=== PATIENT | female | born 1990 | race Caucasian/White ===

== ENCOUNTER → 2020-06-16 13:30 | Outpatient (BNVA) | payer OTHER, SELFPAY | PROVIDERS: Family Provider Nurse Practitioner Family; PCP Nurse Practitioner Family; Visit Provider Psychiatry & Neurology Psychiatry | DX: F43.12 Post-traumatic stress disorder, chronic (principal); F33.1 Major depressive disorder, recurrent, moderate; F41.1 Generalized anxiety disorder | CPT/HCPCS: 99204 ==

== ENCOUNTER → 2020-09-22 10:37 | Outpatient (BNVA) | payer OTHER, SELFPAY | PROVIDERS: Family Provider Nurse Practitioner Family; PCP Nurse Practitioner Family; Visit Provider Nurse Practitioner Women's Health | DX: N92.6 Irregular menstruation, unspecified (principal) | CPT/HCPCS: 81025 ==

== ENCOUNTER → 2020-10-27 11:21 | Outpatient (BNVA) | payer BC, SELFPAY | PROVIDERS: Family Provider Nurse Practitioner Family; PCP Nurse Practitioner Family; Visit Provider Obstetrics & Gynecology | DX: Z34.80 Encounter for supervision of other normal pregnancy, unspecified trimester (principal) | CPT/HCPCS: 80307; 84315; 85027; 86592; 86762; 86787; 86803; 86850; 86900; 87086; 87340; 87806 ==

== ENCOUNTER → 2020-11-11 15:09 | Outpatient (BNVA) | payer BC, SELFPAY | PROVIDERS: Family Provider Nurse Practitioner Family; PCP Nurse Practitioner Family; Visit Provider Obstetrics & Gynecology | DX: Z34.90 Encounter for supervision of normal pregnancy, unspecified, unspecified trimester (principal) | CPT/HCPCS: 84315; 87491; 87591; 88175 ==

== ENCOUNTER → 2020-12-08 15:48 | Outpatient (BNVA) | payer BC, SELFPAY | PROVIDERS: Family Provider Nurse Practitioner Family; PCP Nurse Practitioner Family; Visit Provider Nurse Practitioner Women's Health | DX: Z34.90 Encounter for supervision of normal pregnancy, unspecified, unspecified trimester (principal) | CPT/HCPCS: 82105; 84315 ==

== ENCOUNTER → 2021-03-04 08:39 | Outpatient (BNVA) | payer BC, SELFPAY | PROVIDERS: Family Provider Nurse Practitioner Family; PCP Nurse Practitioner Family; Visit Provider Nurse Practitioner Women's Health | DX: Z34.80 Encounter for supervision of other normal pregnancy, unspecified trimester (principal) | CPT/HCPCS: 82950; 84315; 85025; 86850 ==

== ENCOUNTER 2021-03-30 09:52 | Outpatient (CLI) | payer BC, SELFPAY ==
[2021-03-30 10:00] VITALS: BP 121/77; PULSE 103; RESP 18; TEMP 36.3; O2SAT 97; BMI 31.8
[2021-03-30 10:57] VITALS: BP 130/84; PULSE 98; RESP 18; TEMP 36.3; O2SAT 96
[2021-03-30 11:57] VITALS: BP 112/70; PULSE 98; RESP 18; TEMP 36.3; O2SAT 98
== END 2021-03-30 11:57 | disposition home or self-care (01) ==
PROVIDERS: PCP Nurse Practitioner Family; Visit Provider Nurse Practitioner Family
DX: U07.1 COVID-19 (principal)
CPT/HCPCS: 96365

== ENCOUNTER → 2021-04-26 10:30 | Outpatient (BNVA) | payer BC, SELFPAY | PROVIDERS: PCP Nurse Practitioner Family; Visit Provider Obstetrics & Gynecology | DX: Z34.80 Encounter for supervision of other normal pregnancy, unspecified trimester (principal) | CPT/HCPCS: 84315; 87081 ==

== ENCOUNTER 2021-05-25 09:20 | Inpatient (IN) | payer BC, SELFPAY ==
[2021-05-25] VITALS (83 sets, daily range): BP systolic 80–138; BP diastolic 41–95; PULSE 60–114; RESP 16–18; TEMP 36.1–37.5; O2SAT 97–99; BMI 34.1
[2021-05-25] MEDS: fentaNYL 50 mcg/mL INJ 2mL IVP (09:41)
[2021-05-25] MEDS: lactated ringers 1,000 ML 999 ML IV ×2 (09:41→10:17)
[2021-05-25 10:13] LABS: Basophils % 0.2 %; Eosinophils # 0.2 10^3/uL (0.0-0.8); Eosinophils % 1.3 %; Hematocrit 35.7 % (37.0-47.0); Hemoglobin 11.8 g/dL (11.5-15.3); Lymphocytes # 1.6 10^3/uL (0.8-4.8); Lymphocytes % 10.9 %; Mean Corpuscular HGB Conc 33.1 g/dL (30.0-36.0); Mean Corpuscular Hemoglobin 30.3 pg (28.0-34.0); Mean Corpuscular Volume 91.8 fl (81-99); Mean Platelet Volume 11.4 fL (7.4-10.4); Monocytes # 1.2 10^3/uL (0.2-0.9); Monocytes % 7.9 %; Neutrophils # 11.84 10^3/uL (1.8-7.7); Neutrophils % 78.9 %; Nucleated Red Blood Cells % 0 %; Platelet Count 227 10^3/cmm (130-400); Red Blood Count 3.89 10^6/uL (4.1-5.3); Red Cell Distribution Width 13.9 % (12.1-15.1)
--- NOTE | 2021-05-25 10:22 | P.ANESASSM_ITS ---
Pre-Anesthetic Assessment Height/Weight: Height 1.75 m Weight 104.78 kg Pulse Resp BP 71 18 127/77 05/25/21 10:14 05/25/21 09:41 05/25/21 10:14 Preop Diagnosis: labor pain labor epidural Familial anesthetic complications: none Was Beta Elmer taken within 24 hours: N/A Social No alcohol and No tobacco Exam alert, oriented x 3, clear to auscultation bilaterally and regular rate & rhythm Airway Submandibular: within normal limits Cervical ROM: within normal limits Mallampati: Class III Dentition: full History/ROS No significant history except as noted Pulmonary None reported CV/HEM None reported None reported Hepatic None reported GI None reported Metabolic None reported Musc/skel None reported Neuropsych Anxiety Anesthetic Plan ASA status: 2 Anesthesia: Anesthesia Evaluation, General and Regional (specify below) Other: I discussed with patient the risk and benefits of labor epidural including PDPH, hypotension, back pain/discomfort/bruising, catastrophic nerve injury including paralysis, abscess, hematoma, failed block, one sided block, and LAST. Patient consents to labor epidural and in case of emergency consents to general anesthesia. Risk of > 500 ml blood loss (7ml/kg in children): No Medications/Allergies Home Medications Medication Instructions Recorded Confirmed Last Taken Type prenat.vits,oneyda,qtg-saiq-okvzh 1 tab PO DAILY 10/20/20 05/24/21 Unknown History fluoxetine 20 mg capsule (Prozac) 20 mg PO DAILY #14 cap 05/03/21 05/24/21 Unknown Rx Allergies Allergy/AdvReac Type Severity Reaction Status Date / Time promethazine Allergy Itching/Medhat Verified 05/24/21 07:58 sea tramadol AdvReac Dysuria/swe Verified 05/24/21 07:58 ating Current Medications Generic Name Dose Route Start Last Admin Trade Name Freq PRN Reason Stop Dose Admin Fentanyl 25 - 100 mcg 05/25/21 09:20 05/25/21 09:41 Fentanyl 50 Mcg/Ml Inj 2ml IVP 100 mcg Q1H PRN Administration SEVERE PAIN Lactated Ringer's 1,000 mls @ 999 mls/hr 05/25/21 09:20 05/25/21 10:17 Lactated Ringers IV 999 mls/hr .Q1H1M PRN Administration Per L&D Rescitation Protocol Lactated Ringer's 1,000 mls @ 999 mls/hr 05/25/21 09:27 05/25/21 10:10 Lactated Ringers IV Infused .Q1H1M PRN Infusion See label comments [facility] Anesthesia Medical History Anxiety and depression Symptoms on and off and was diagnosed in 2020 and was on Prozac prior to the start of the . She follows with Dr. Holliday at [facility] [place] and is just started therapy. No pertinent past medical history Denies diabetes, asthma, hypertension, seizures, DVT/PE PCP: Plans to start seeing Mayda Whitehead Surgical History No pertinent past surgical history Family History Denies family history of Colon cancer Ovarian cancer Diabetes Heart disease Hypercholesteremia Breast cancer Hypertension Uterine cancer Thyroid disease Stroke Data Anesthesia : 05/25/21 09:12 Short CBC 05/25/21 Range/Units 09:12 WBC 15.0 H (4.0-10.0) 10^3/uL Hgb 11.8 (11.5-15.3) g/dL Hct 35.7 L (37.0-47.0) % MCV 91.8 (81-99) fl Plt Count 227 (130-400) 10^3/cmm Neut % (Auto) 78.9 % Neut # (Auto) 11.84 H (1.8-7.7) 10^3/uL Cardiac Studies: No Data to Display
--- NOTE | 2021-05-25 11:51 | ANES.PROC ---
Anesthesia Procedures Procedure/Date: 05/25/21 Epidural: Time Out Performed: Yes (1025) Consents Signed: Procedure Consent and NPO Consent Consent: from patient, risks and benefits reviewed and patient agrees to proceed Lumbar Level: L4-L5 Epidural procedure: sterile prep of area, 1% lidocaine to numb the area, 18 g needle, negative for paresthesia passed, 1.5% xylocaine 1:200k epi, placed PCEA, no systemic response, sterile dressing applied and 0.2% Ropiavacaine @ mls/hr (13) Additional Comments: Cap, mask donned by all staff in room. Patient sat up. Patient prepped and draped in usual sterile fashion with Chlorprep. 1% lidocaine skin wheel. Tuohy inserted with stylet. Ligament engaged. Using YI w/ saline technique epidural space found, catheter threaded. Negative aspiration. Test dose 1.5% lidocaine with epinenephrine 1:200,000 total 3 cc. No response. Sterile dressing. Infusion started. Loss at 5 , catheter at 11. Tolerated well, 1 attempted, good block.
[2021-05-25] MEDS: ondansetron 2 mg/ML SDV 2 mL 4 MG IVP (12:09)
--- NOTE | 2021-05-25 17:31 | P.PCNOB_ITS ---
Delivery Note: Date of delivery: May 25, 2021 Pre-delivery diagnoses: Term Post-delivery diagnoses: Term Procedure: Spontaneous vaginal delivery Delivering Physician: Delfino Guzman MD Delivery: The patient was noted to be complete and pushing, so was placed in the dorsal lithotomy position, prepped and draped in the usual sterile fashion for a vaginal delivery. Pt. Noted to have epidural anesthesia. The patient delivered a viable term male weighing 4028 g with scores of 8 and 9 at one and five minutes, respectively. The vertex was delivered spontaneously over intact perineum. The patient was asked to push and the head delivered spontaneously in the MITZY position, over an intact perineum. A nuchal cord was checked and none noted. The anterior shoulder delivered easily and the posterior shoulder followed. The remainder of the was easily delivered and the oropharynx and nasopharynx was bulb suctioned. The was noted to have spontaneous cry and spontaneous movement of all four extremities. The cord was clamped x 2 and cut and noted to have 2 arteries and one vein. The was passed to the mother's abdomen where nursing personnel were in attendance. Cord blood sample was then obtained. The placenta delivered intact spontaneously and the uterus was explored. 20 units of Pitocin was placed in the IV bag to firm the uterus. Examination of the cervix and vaginal vault did not reveal any lacerations. A vaginal pack was then placed. Examination of the perineum showed no lacerations noted. The vaginal pack was then removed. The patient tolerated this procedure well, and recovered in L&D with her in their LDR room. All sponge and needle counts were correct. History History History 2 Term 1 Miscarriages/Ectopic 0 0 Living Children 1 Coding Level of Care Code Acute Corporate Strategy Associate for Chg Ally
[2021-05-25] MEDS: ibuprofen 800 mg tablet PO (23:00)
[2021-05-26] VITALS (7 sets, daily range): BP systolic 99–135; BP diastolic 52–69; PULSE 78–90; TEMP 35.7–36.8
[2021-05-26] MEDS: ondansetron 2 mg/ML SDV 2 mL 4 MG IVP (00:16)
[2021-05-26] MEDS: benzocaine-menthol 78 gm Canister 1 SPRAY TOPICAL (00:18)
[2021-05-26] MEDS: ibuprofen 800 mg tablet PO ×3 (00:22→17:04)
[2021-05-26 05:39] LABS: Hematocrit 30.1 % (37.0-47.0); Hemoglobin 9.8 g/dL (11.5-15.3); Mean Corpuscular HGB Conc 32.6 g/dL (30.0-36.0); Mean Corpuscular Hemoglobin 30.2 pg (28.0-34.0); Mean Corpuscular Volume 92.6 fl (81-99); Mean Platelet Volume 10.9 fL (7.4-10.4); Platelet Count 190 10^3/cmm (130-400); Red Blood Count 3.25 10^6/uL (4.1-5.3); White Blood Count 14.7 10^3/uL (4.0-10.0)
[2021-05-26] MEDS: prenatal vitamin Capsule 1 CAP PO (08:57)
[2021-05-26] MEDS: docusate sodium 100 mg Capsule PO ×2 (08:57→17:04)
--- NOTE | 2021-05-26 09:53 | ANE.PACU2 ---
Inpatient post-anesthesia follow up: Airway intact: Yes Vital signs: Temperature 98.2 F Pulse Rate 86 Respiratory Rate 18 Blood Pressure 129/60 Pulse Oximetry 97 Oxygen Delivery Me thod Room Air Oxygen Flow Rate Fraction of Inspir ed Oxygen Hydration adequate: No Nausea and vomiting: No Pain level: 3 Mental status: Baseline
--- NOTE | 2021-05-26 18:58 | P.DS_ITS ---
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 Garcia 22-year-old female status post anterior vaginal delivery day 1. P ostdelivery observation uneventful. She is afebrile and hemodynamically stable. Tolerating diet well. Ambulating without difficulty. Counseled regarding breast-feeding, contraception, and pelvic rest for 6 weeks. Status: Acute Reason for Visit Reason for Visit: Abdominal pain Information Peripartum Data: Infant Delivery Method: Vaginal Physical Exam Narrative: GA; alert and oriented x 3 HEENT: normal Breasts: engorged Nipples - skin intact Lungs; clear to auscultation Heart: regular rhythm, no murmurs. Abd: Appropriately tender. BS+. Uterine fundus below umbilicus. No Fundal Tenderness. Perineum: normal lochia. Extremities: no edema, no cyanosis, no tenderness. Urinary Catheter Management: Grossman: Cath Placed During This Visit: yes, but has since been removed by the nurse Reason for Continuing Indwelling Catheter: Decision to DC Catheter Urinary Catheter Date of Insertion: 05/25/21 Urinary Catheter Time of Insertion: 11:21 Date Urinary Catheter Removed: 05/25/21 Time Urinary Catheter Discontinued: 16:59 History History History 2 Term 1 Miscarriages/Ectopic 0 0 Living Children 1 Discharge Data Studies Completed and Pending Laboratory Results WBC 14.7 10^3/uL (4.0-10.0) H 05/26/21 05:33 RBC 3.25 10^6/uL (4.1-5.3) L 05/26/21 05:33 Hgb 9.8 g/dL (11.5-15.3) L 05/26/21 05:33 Hct 30.1 % (37.0-47.0) L 05/26/21 05:33 MCV 92.6 fl (81-99) 05/26/21 05:33 MCH 30.2 pg (28.0-34.0) 05/26/21 05:33 MCHC 32.6 g/dL (30.0-36.0) 05/26/21 05:33 RDW 14.0 % (12.1-15.1) 05/26/21 05:33 Plt Count 190 10^3/cmm (130-400) 05/26/21 05:33 MPV 10.9 fL (7.4-10.4) H 05/26/21 05:33 Neut % (Auto) 78.9 % 05/25/21 09:12 Lymph % (Auto) 10.9 % 05/25/21 09:12 [place] % (Auto) 7.9 % 05/25/21 09:12 Eos % (Auto) 1.3 % 05/25/21 09:12 Baso % (Auto) 0.2 % 05/25/21 09:12 Neut # (Auto) 11.84 10^3/uL (1.8-7.7) H 05/25/21 09:12 Lymph # (Auto) 1.6 10^3/uL (0.8-4.8) 05/25/21 09:12 [place] # (Auto) 1.2 10^3/uL (0.2-0.9) H 05/25/21 09:12 Eos # (Auto) 0.2 10^3/uL (0.0-0.8) 05/25/21 09:12 Baso # (Auto) 0.0 10^3/uL (0.0-0.1) 05/25/21 09:12 Nucleated RBC % (auto) 0 % 05/25/21 09:12 Nucleated RBCs # 0.0 /100WBC 05/25/21 09:12 Vitals Last Vital Signs Temp 96.8 F L 05/26/21 17:05 Pulse 81 05/26/21 17:05 Resp 18 05/25/21 09:41 BP 117/66 05/26/21 17:05 Pulse Ox 97 05/25/21 10:40 Discharge Plan Discharge Patient Disposition: Home Condition: Stable Prescriptions: New ibuprofen 800 mg tablet 800 mg PO TID PRN (Reason: pain) Qty: 60 0RF Iron (ferrous sulfate) 325 mg (65 mg iron) tablet 325 mg PO BID Qty: 60 0RF Colace 100 mg capsule 100 mg PO BID Qty: 60 0RF acetaminophen 325 mg capsule 325 mg PO Q4H PRN (Reason: fever or pain) Qty: 60 0RF Continued prenat.vits,oneyda,[id number]-[id number] Tablet 1 tab PO DAILY 0RF fluoxetine [Prozac] 20 mg capsule 20 mg PO DAILY Qty: 14 0RF Discharge Orders: Discharge Order (Routine); Ordered 05/26/21 Ordered By: Delfino Guzman Discharge Diet: Regular Discharge Activity: Limit activity as instructed Patient Instructions: Depression (DC), Perineal Care (DC), Bleeding (DC), Preeclampsia and Eclampsia After Delivery (GEN), OB Food/Drug Interaction Guide, OB Care at Home, Opioid Safety, OB Vaginal Deliveries Activity Restrictions/Additional Instructions: 1. Please call [facility] on next working day to make your appointment in 6 weeks. 2. Please stay home until you come back to the clinic on first post-operative check up. 3. Please follow instructions on your medications CAREFULLY. 4. If you have abdominal incision, do not cover it unless dressing is necessary because of drainage. OK to shower, but avoid bath. Leave steri-strips until they fall off. If they are still on one week after surgery, you may remove them. 5. If you had vaginal surgery or vaginal repair, Dr. Guzman may instruct you to take SITZ bath. 6. Yellow, blood tinged odorous vaginal discharge is usually normal after hysterectomy or vaginal surgeries. 7. No sexual intercourse, tampons, or douches until you are completely released from the post-operative care. 8. Avoid constipation by eating right and maybe using some Metamucil or Milk of Magnesia. 9. All prescription refills are given during the working hours. Please do no wait till it runs out. Call the clinic at [phone] before your medication runs out. The clinic will get in touch with your doctor to prescribe medications if necessary. 10. Please remain within 40 mile radius from our hospital because emergencies do happen now and then during the post-operative period. 11. If you have stairs at home, take one step at a time slowly and minimize the number of trips. It helps to stay in one floor for the next few days. No lifting except what you can lift by one hand until you are released from the post-operative care. 12. Driving is discouraged until you are well healed. It may be 3-4 weeks before you feel strong enough to drive. You should be able to turn and look through the rear window without pain and you should be able to push the brake pedal very hard without pain before you drive. No fast rules, but SAFETY should be your primary concern. DO NOT drive if you are on sedating medications such as narcotics. 13. Call the clinic (during working hours) to make urgent appointment or go to the Emergency room, if any of the following occurs: i. Vaginal bleeding becomes heavy, more than a period. ii. Incision becomes red and sore, or drains pus. iii. Your temperature is over 100.4 or you have chill. iv. IV site becomes red and swollen (a little ``knot?? is usually OK) v. Persistent nausea and vomiting vi. Persistent constipation or diarrhea vii. Rash or allergic reaction to medications. 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
[2021-05-26] MEDS: acetaminophen 325 mg Tablet 650 MG PO (20:21)
== END 2021-05-26 20:28 | disposition home or self-care (01) | DRG 807 ==
LOC: OPOB 13:13 → OBGYN 13:13
PROVIDERS: Admitting Provider Obstetrics & Gynecology; PCP Nurse Practitioner Family; Visit Provider Obstetrics & Gynecology
DX: O99.344 Other mental disorders complicating childbirth (principal); Z37.0 Single live birth; F41.9 Anxiety disorder, unspecified; F32.A Depression, unspecified; Z3A.40 40 weeks gestation of pregnancy
CPT/HCPCS: 36415; 51702; 59025; 59409; 85025; 85027; 99211; J2405; J3010

== ENCOUNTER → 2023-03-21 12:50 | Outpatient (BNVA) | payer OTHER, SELFPAY | PROVIDERS: Referring Provider Family Medicine; Visit Provider Student in an Organized Health Care Education/Training Program | DX: S52.121A Displaced fracture of head of right radius, initial encounter for closed fracture; S62.101A Fracture of unspecified carpal bone, right wrist, initial encounter for closed fracture; W01.0XXA Fall on same level from slipping, tripping and stumbling without subsequent striking against object, initial encounter | CPT/HCPCS: 73080; 73110 ==

== ENCOUNTER 2023-03-21 15:04 | Outpatient (CLI) | payer OTHER, SELFPAY | END 2023-03-21 15:05 | disposition home or self-care (01) | LOC: SPT 15:04 | PROVIDERS: Visit Provider Student in an Organized Health Care Education/Training Program | DX: Z46.89 Encounter for fitting and adjustment of other specified devices (principal); M25.531 Pain in right wrist | CPT/HCPCS: 97760; L3982 ==